=== PATIENT | male | born 1985 | race African-American/Black ===

== ENCOUNTER 2016-06-02 21:53 | Emergency (ER) | payer OTHER ==
[~2016-06-02 21:53] MED LIST: NO MEDICATIONS
== END 2016-06-02 22:07 | disposition home or self-care (01) ==
LOC: SED 21:53
DX: J02.9 Acute pharyngitis, unspecified (principal); F17.210 Nicotine dependence, cigarettes, uncomplicated
CPT/HCPCS: 99282